=== PATIENT | male | born 1995 | race Caucasian/White ===

== ENCOUNTER 2019-05-02 22:56 | Emergency (ER) | payer OTHER ==
[~2019-05-02] VITALS: Ht 165.1 cm; Wt 70.3 kg
[~2019-05-02 22:56] MED LIST: NAPROSYN500 MG PO; NOHOMEMEDICATIONS
[2019-05-03 01:10] VITALS: BP 118/65
--- NOTE | 2019-05-03 10:19 | EKG ---
[place] [address] ELECTROCARDIOGRAM REPORT Name: MASSIEL LAMB Room: [facility]#: [id number] Admission: 05/02/19 Attend Phys: Discharge: 05/03/19 Date of : [birth year] Report #: [id number] THIS REPORT FOR: //name// [facility] ED Test Date: 2019-05-03 Test Time: 00:16:47 Pat Name: MASSIEL TAMAYO Department: Room: Gender: M Civil Structural Engineer: CHIDI : [id number] Requested By: Shira Sheffield Order Number: [id number] MD: Hari Webster Measurements Intervals Creole Rate: 59 P: 58 WI: 152 QRS: 45 QRSD: 92 T: 18 QT: 406 QTc: 403 Interpretive Statements Sinus rhythm No previous ECG available for comparison Electronically Signed On 05-03-2019 10:19:19 [employer]ES [employer] by Hari Webster [email or web address] <ELECTRONICALLY SIGNED> By: Hari Webster MD, [facility] 05/03/19 1019 0016 0016 Hari Webster MD, FACC /EPI
== END 2019-05-03 01:10 | disposition home or self-care (01) ==
LOC: M.ERS 22:56
DX: R51 Headache (principal); R01.1 Cardiac murmur, unspecified